=== PATIENT | male | born 1980 | race Caucasian/White ===

== ENCOUNTER → 2022-03-05 | Outpatient (CLI) | payer OTHER | LOC: RAD 10:00 | DX: I82.451 Acute embolism and thrombosis of right peroneal vein (principal); S80.01XA Contusion of right knee, initial encounter ==

== ENCOUNTER → 2022-05-04 | Outpatient (CLI) | payer OTHER | LOC: RAD 12:15 | DX: S93.492A Sprain of other ligament of left ankle, initial encounter (principal); X58.XXXA Exposure to other specified factors, initial encounter ==